=== PATIENT | male | born 1975 | race African-American/Black ===

== ENCOUNTER 2018-05-13 21:22 | Emergency (ER) | payer MEDICARE ==
[~2018-05-13] VITALS: Ht 180.3 cm; Wt 121.1 kg
[2018-05-13 22:36] VITALS: BP 120/82
[2018-05-13] MEDS ORDERED: DEXAMETHASONE SOD PHOS 10MG/1ML VIAL INJ IM ONE (23:30)
[2018-05-13] MEDS ORDERED: KETOROLAC TROMETH 60MG/2ML VIAL IM ONE (23:30)
== END 2018-05-14 00:19 | disposition home or self-care (01) ==
LOC: ER 21:22
DX: S16.1XXA Strain of muscle, fascia and tendon at neck level, initial encounter (principal); X58.XXXA Exposure to other specified factors, initial encounter; Y93.89 Activity, other specified; Y99.8 Other external cause status; Y92.89 Other specified places as the place of occurrence of the external cause
CPT/HCPCS: 72040; 96372; 99284; J1100; J1885